=== PATIENT | female | born 1975 | race Caucasian/White ===

== ENCOUNTER 2023-08-04 16:56 | Emergency (ER) | payer OTHER, MEDICARE ==
[2023-08-04] MEDS ORDERED: Sodium Chloride 0.9% 10 ML Syringe FLUSH PRN (16:57)
[2023-08-04 17:05] LABS: BASOPHILS PERCENT AUTO 0.2 % (0.1-1.3); EOSINOPHILS PERCENT AUTO 0.2 % (0.0-5.4); HEMATOCRIT 27.4 % (34.3-46.0); HEMOGLOBIN 9.5 g/dL (11.2-15.5); IMMATURE GRAN ABSOLUTE AUTO 0.03 K/uL (0.00-0.23); IMMATURE GRAN PERCENT AUTO 0.4 % (0.0-0.7); LYMPHOCYTES ABSOLUTE AUTO 0.66 K/uL (0.8-3.3); LYMPHOCYTES PERCENT AUTO 8.2 % (11.4-47.7); MEAN CORPUSCULAR HEMOGLOBIN 28.9 pg (31.6-35.5); MEAN CORPUSCULAR HGB CONC 34.7 g/dL (31.6-35.5); MEAN CORPUSCULAR VOLUME 83.3 fL (81.4-99.0); MONOCYTES ABSOLUTE AUTO 0.73 K/uL (0.20-0.90); NEUTROPHILS ABSOLUTE AUTO 6.63 K/uL (1.0-7.6); PLATELET COUNT,PLT 302 K/uL (130-375); RED BLOOD CELL COUNT 3.29 M/uL (3.77-5.24); WHITE BLOOD CELL COUNT,WBC 8.1 K/uL (3.2-11.0)
[2023-08-04 17:06] LABS: BASOPHILS ABSOLUTE AUTO 0.02 K/uL (0.00-0.10); EOSINOPHILS ABSOLUTE AUTO 0.02 K/uL (0.00-0.40)
[2023-08-04] MEDS ORDERED: Sodium Chloride 0.9% 100 ML IV SCH (17:15)
[2023-08-04] MEDS ORDERED: Iopamidol 755 Mg/ML 100 ML Bottle IV SCH (17:15)
[2023-08-04 17:26] LABS: INR 1.2; PROTHROMBIN TIME 11.8 sec (9.2-10.6); PTT,PARTIAL THROMBOPLSTIN TIME 21.9 sec (21.8-27.3)
[2023-08-04 17:30] LABS: BLOOD UREA NITROGEN,BUN 27 mg/dL (7-18); CALCIUM 8.7 mg/dL (8.5-10.1); CARBON DIOXIDE,CO2 19 mmol/L (21-32); CHLORIDE,CL 94 mmol/L (100-108); CREATININE 2.1 mg/dL (0.6-1.0); ESTIMATED GFR 28 mL/min (>60); GLUCOSE RANDOM 109 mg/dL (74-106); POTASSIUM,K 3.1 mmol/L (3.6-5.2); SODIUM,NA 130 mmol/L (140-148)
[2023-08-04 17:31] LABS: ANION GAP 20.1 mmol/L (5.0-14.0)
[2023-08-04 17:32] LABS: TROPONIN I HIGH SENSITIVITY 68.2 pg/mL (<=60.3)
[2023-08-04] MEDS ORDERED: Sodium Chloride 0.9% 1,000 ML IV ONE (17:45)
[2023-08-04] MEDS ORDERED: levETIRAcetam 1,000 MG in Sodium Chloride 0.9% 100 ML IV ONE (18:14)
[2023-08-04 19:23] VITALS: PULSE 87
[2023-08-04 19:49] VITALS: BP 144/86
== END 2023-08-04 20:13 ==
LOC: JP.ED 16:56
DX: E87.20 Acidosis, unspecified (principal); E87.1 Hypo-osmolality and hyponatremia; E87.6 Hypokalemia; E83.42 Hypomagnesemia; J45.909 Unspecified asthma, uncomplicated; E11.9 Type 2 diabetes mellitus without complications; Z90.49 Acquired absence of other specified parts of digestive tract; Z79.82 Long term (current) use of aspirin; Z79.899 Other long term (current) drug therapy; Z88.5 Allergy status to narcotic agent
CPT/HCPCS: 36415; 70450; 70496; 70498; 80048; 83605; 83735; 84484; 84703; 85025; 85610; 85730; 93005; 96361; 96365; 99285; J1953; J3490; J7030; Q9967; 93010